=== PATIENT | male | born 1990 | race African-American/Black ===

== ENCOUNTER 2017-05-26 12:05 | Emergency (ER) | payer MEDICAID ==
--- NOTE | 2017-05-27 11:00 | ER ---
ADMIT: 05/26/2017 RM/LOC: ER [facility] MR#: [id number] [address] [id number] SANGEETA SHI Clementina [address] [address] Emergency Room Report SEX: M AGE: 27 : 1990 DATE: 05/26/2017 CHIEF COMPLAINT: Headache. HISTORY OF PRESENT ILLNESS: A 27-year-old male, presents to the ER with complaints of 3 days of headache, gradual in onset. Denies recent head trauma or sick contacts. Rates as an 8/10. States he does not have a history of headaches. However, he has been somewhat sick the last few days, feeling nauseous, running some off and on fevers. Describes the pain worse with light. Mildly nauseous at this time. Denies any numbness or tingling in his extremities. No incontinence. No past medical history. No surgical history. No medications or allergies. Has not tried anything over the counter at this point. Does admit to a recent history of quitting smoking. Says appetite has been somewhat decreased. COURSE IN THE EMERGENCY ROOM: The patient was seen and examined. GENERAL: Afebrile, nontoxic, in no acute distress. HEENT: Normocephalic, atraumatic. Pupils are equal and reactive. Extraocular movements intact. There is no percussion or pain in the sinuses. No purulent nasal drainage. Pharynx nonerythematous. NECK: Soft, supple. No lymphadenopathy. No meningismus. CHEST: Clear. HEART: Regular. ABDOMEN: Soft and nontender. SKIN: Warm, dry. NEUROLOGICAL: He is alert and oriented. Speech is appropriate. Cranial nerves are grossly intact. He has a normal gait. Motor and sensation intact in upper and lower extremities. While in the department, he did receive 15 mg of Toradol IM as well as Reglan 10 mg IM and mg IM. He was allowed to rest. He is now feeling improved, wants to go home and rest. CLINICAL IMPRESSION: Headache. DISPOSITION: Discharged home. Increase fluids. Tylenol or Motrin for pain. Return with worsening signs or symptoms. Follow up primary care. Discharged home in stable condition. JAMES Bartlett / Mayo Arreguin MD / modl JOB #: [id number] CC: Mayo Arreguin MD, Attending Physician Raymond Rao MD, Family Physician
== END 2017-05-26 13:20 | disposition home or self-care (01) ==
LOC: ER 12:05
DX: R51 Headache (principal); Z87.891 Personal history of nicotine dependence